=== PATIENT | male | born 1965 | race Caucasian/White ===

== ENCOUNTER 2021-11-20 11:06 | Emergency (ER) | payer SELFPAY ==
[~2021-11-20] VITALS: Ht 172.7 cm; Wt 93.2 kg
[2021-11-20] MEDS ORDERED: VALA100031 PO (11:33)
[2021-11-20] MEDS ORDERED: PRED20TA PO (11:33)
[2021-11-20 11:58] VITALS: BP 163/98
== END 2021-11-20 12:00 | disposition home or self-care (01) ==
LOC: ER 11:07
DX: G51.0 Bell's palsy (principal); R20.0 Anesthesia of skin; R51.9 Headache, unspecified; Z79.2 Long term (current) use of antibiotics
CPT/HCPCS: 99283